=== PATIENT | male | born 1990 | race Caucasian/White ===

== ENCOUNTER 2019-03-12 07:18 | Inpatient (IN) | payer MEDICAID ==
[~2019-03-12] VITALS: Ht 167.6 cm; Wt 47.2 kg
[2019-03-12 08:09] LABS: BASOPHILS % (AUTO) 0.4 % (0-1); EOSINOPHILS % (AUTO) 0.1 % (0-6); HEMATOCRIT 48.7 % (42.0-52.0); LYMPHOCYTES # (AUTO) 0.8 X10'3 (1.1-4.8); LYMPHOCYTES % (AUTO) 6.9 % (21-51); MEAN CORPUSCULAR HEMOGLOBIN 27.1 PG (27.0-31.0); MEAN CORPUSCULAR HGB CONC 32.9 g/dL (33.0-36.5); MEAN CORPUSCULAR VOLUME 82.3 FL (78-98); MEAN PLATELET VOLUME 8.4 FL (7.4-10.4); MONOCYTES # (AUTO) 1.3 X10'3 (0-0.9); MONOCYTES % (AUTO) 11.6 % (2-12); PLATELET COUNT 326 X10'3 (140-440); RED BLOOD COUNT 5.91 X10'6 (4.70-6.10); RED CELL DISTRIBUTION WIDTH 15.3 % (11.5-14.5); WHITE BLOOD COUNT 11.1 X10'3 (4.5-11.0)
[2019-03-12 08:20] LABS: PARTIAL THROMBOPLASTIN TIME 33 SECONDS (22-32)
[2019-03-12 08:31] LABS: ABG BASE EXCESS 4.3 mmol/L (-2.0-3.0); ABG HCO3 32.1 mmol/L (22.0-26.0); ABG OXYGEN SATURATION 93.5 % (95-98); ABG PCO2 (T) 61.2 mmHg (35.0-45.0); ABG PH (T) 7.337 (7.350-7.450); ABG PO2 (T) 64.1 mmHg (83-108); ALLEN'S TEST Positive; FCOHb 1.2 % (0.5-1.5); FMetHb 0.2 % (0.3-1.12); FO2Hb 92.2 % (94-100); TOTAL HEMOGLOBIN 15.1 G/dl (14.0-17.9)
[2019-03-12 08:35] LABS: ALANINE AMINOTRANSFERASE 36 U/L (12-78); ALBUMIN 3.9 G/DL (3.4-5.0); ALBUMIN/GLOBULIN RATIO 0.9 (1.1-1.5); ALKALINE PHOSPHATASE 72 IU/L (46-116); ANION GAP 7 (8-16); ASPARTATE AMINO TRANSFERASE 45 U/L (10-37); BILIRUBIN,TOTAL 0.5 MG/DL (0.1-1.0); BLOOD UREA NITROGEN 13 MG/DL (7-18); BUN/CREATININE RATIO 28.9 (5.4-32.0); CALCIUM 9.7 MG/DL (8.5-10.1); CHLORIDE 100 MMOL/L (99-107); CREATININE 0.45 MG/DL (0.60-1.10); GLUCOSE 150 MG/DL (70-104); SODIUM 139 MMOL/L (135-145); TOTAL CARBON DIOXIDE 31.9 MMOL/L (24-32); TOTAL PROTEIN 8.3 G/DL (6.4-8.2); eGFR > 90 ML/MIN
[2019-03-12 08:39] LABS: POTASSIUM 2.8 MMOL/L (3.5-5.1)
[2019-03-12] MEDS ORDERED: potassium 10mEq/100ml NS w/LIDOcaine (10mg/bag) IV ONE (08:40)
[2019-03-12] MEDS ORDERED: potassium Cl 20 mEq SR tablet PO ONE (08:40)
[2019-03-12] MEDS ORDERED: iohexol 350MG/ML 100ml bottle IV ONE (08:45)
[2019-03-12] MEDS ORDERED: potassium CL 10mEq/100ml bag 100 ML IV ONE (08:50)
[2019-03-12 09:56] LABS: CLARITY,URINE CLOUDY (Clear); COLOR,URINE YELLOW (Yellow); GLUCOSE, URINE NEGATIVE (Neg); KETONES,URINE 15 mg/dl (Neg); LEUKOCYTE ESTERASE ,URINE NEGATIVE (Neg); NITRITES, URINE NEGATIVE (Neg); OCCULT BLOOD,URINE MODERATE (Neg); PH,URINE 6.5 (4.8-8.0); PROTEIN,URINE 30 mg/dl (Neg); UROBILINOGEN,URINE 0.2 E.U/dL (0.2-1.0)
[2019-03-12 10:12] LABS: UA COLLECTION TYPE URINAL
[2019-03-12 10:15] LABS: RBC,URINE 0-2 /HPF (0-2); WBC,URINE 0-4 /HPF (0-4)
[2019-03-12 10:16] LABS: AMMONIUM BIURATE CRYSTALS 3+ /HPF (NEGATIVE); BACTERIA,URINE FEW /HPF (Neg); HYALINE CASTS 0-3 /LPF (NEGATIVE); SQUAMOUS EPITHELIAL CELL,UR NONE SEEN /LPF (FEW)
[2019-03-12 10:17] LABS: MUCUS STRANDS FEW /LPF (Neg)
[2019-03-12] MEDS ORDERED: aspirin 325mg tablet PO ONE (10:25)
[2019-03-12] MEDS ORDERED: normal saline 1000ML IV soln IVB ONE (10:25)
[2019-03-12] MEDS ORDERED: ipratropium/albuterol 3ml nebule NEB ONE (10:40)
[2019-03-12 10:49] LABS: URINE AMPHETAMINE SCREEN NEGATIVE (Neg); URINE BARBITUATE SCREEN NEGATIVE (Neg); URINE BENZODIAZEPINES SCREEN NEGATIVE (Neg); URINE CANNABINOID SCREEN NEGATIVE (Neg); URINE COCAINE SCREEN NEGATIVE (Neg); URINE METHADONE SCREEN NEGATIVE (Neg); URINE OPIATE SCREEN NEGATIVE (Neg); URINE PHENCYCLIDINE SCREEN NEGATIVE (Neg)
[2019-03-12] MEDS ORDERED: normal saline 1000ml 1,000 ML IV SCH (11:21)
[2019-03-12] MEDS ORDERED: potassium Cl 20 mEq SR tablet PO PRN ×2 (11:25)
[2019-03-12] MEDS ORDERED: acetaminophen 325mg tablet PO PRN ×2 (11:25)
[2019-03-12] MEDS ORDERED: morphine 2 MG/ML inj. syringe IV PRN (11:25)
[2019-03-12] MEDS ORDERED: ondansetron/PF 4mg/2ml inj IV PRN (11:25)
[2019-03-12] MEDS ORDERED: HYDROcodone/acetaminophen 5mg/325mg tablet PO PRN (11:25)
[2019-03-12] MEDS ORDERED: magnesium 4gm in 100ml NS 100 ML IV PRN (11:25)
[2019-03-12] MEDS ORDERED: magnesium Cl slow-release 64mg tablet PO PRN (11:25)
[2019-03-12] MEDS ORDERED: magnesium 2GM in 50ml NS 50 ML IV PRN (11:25)
[2019-03-12] MEDS ORDERED: potassium CL 10mEq/100ml bag 100 ML IV PRN ×2 (11:25)
[2019-03-12] MEDS ORDERED: CefTRIAXone 2gm/D5W 50ml 50 ML IV SCH (11:36)
--- NOTE | 2019-03-12 12:00 | NUR ---
Patient in room PCU 3009. I have received report from JAIMIE Sol and had the opportunity to ask questions and assume patient care.
[2019-03-12 13:13] LABS: POTASSIUM 3.2 MMOL/L (3.5-5.1)
[2019-03-12 13:30] VITALS: BP 137/95
[2019-03-12] MEDS: levalbuterol 0.63mg/3ml nebule IH SCH ×3 (14:51→20:01)
[2019-03-12 15:00] VITALS: BP 131/87
--- NOTE | 2019-03-12 18:40 | NUR ---
Patient in room PCU 3009. I have received report from JAIMIE Peck and had the opportunity to ask questions and assume patient care.
--- NOTE | 2019-03-12 18:45 | NUR ---
Problems reprioritized. Patient report given, questions answered & plan of care reviewed with JAIMIE Kauffman.
[2019-03-12 19:00] VITALS: BP 144/101
[2019-03-12] MEDS: docusate sod 100mg capsule PO SCH (20:00)
[2019-03-12] MEDS: heparin, porcine 5000 units/ml vial SQ SCH (20:23)
--- NOTE | 2019-03-12 22:01 | NUR ---
PAGER ID: [phone] MESSAGE: [phone] pt Javan ARNOLD pt has been sinus tachy in the 130s. - Dlay 2604.
--- NOTE | 2019-03-12 22:09 | NUR ---
PAGER ID: [phone] MESSAGE: [phone] pt Javan ARNOLD pt has been sinus tachy in the 130s. - Daly 2602.
[2019-03-12 23:00] VITALS: BP 155/108
--- NOTE | 2019-03-12 23:23 | NUR ---
PAGER ID: [phone] MESSAGE: [phone] pt Javan c/o inability to move in enough air. Current O2 sat 97% on 2L, BP elevated to 156/118 manual, and sinus tach in the 140s now. Please advise - Daly [phone]
[2019-03-12] MEDS ORDERED: furosemide 40mg/4ml inj IV ONE (23:25)
--- NOTE | 2019-03-12 23:28 | NUR ---
Page to Respiratory: [phone] pt Javan c/o difficulty breathing, currently 97% on 2L but saying he feels like he isn't moving enough air in and is requesting RT. Thank you - Daly
[2019-03-13] VITALS (14 sets, daily range): BP systolic 109–160; BP diastolic 78–111
--- NOTE | 2019-03-13 00:21 | NUR ---
PAGER ID: [phone] MESSAGE: [phone] pt Javan repeatedly c/o difficulty breathing, Lasix given, fluids DCd, Morphine given, IS used, sats high 90s, still tachy in 130s, no obvious swelling. pt and father requesting MD to come see him if you are available. - Daly Schulte Addendum: 03/13/19 at 0103 by Daly Stallworth RN Per MD, continue to monitor including BP current of 147/100. One time Ativan PO ordered.
[2019-03-13] MEDS ORDERED: LORazepam 0.5 MG tablet PO STA (00:59)
[2019-03-13] MEDS: levalbuterol 0.63mg/3ml nebule IH SCH ×4 (02:12→20:10)
[2019-03-13 05:56] LABS: BASOPHILS % (AUTO) 0.2 % (0-1); EOSINOPHILS % (AUTO) 0 % (0-6); HEMATOCRIT 45.7 % (42.0-52.0); HEMOGLOBIN 14.8 g/dl (14.0-17.9); LYMPHOCYTES # (AUTO) 0.2 X10'3 (1.1-4.8); LYMPHOCYTES % (AUTO) 1.1 % (21-51); MEAN CORPUSCULAR HEMOGLOBIN 27.1 PG (27.0-31.0); MEAN CORPUSCULAR HGB CONC 32.4 g/dL (33.0-36.5); MEAN CORPUSCULAR VOLUME 83.6 FL (78-98); MEAN PLATELET VOLUME 9.1 FL (7.4-10.4); MONOCYTES # (AUTO) 1.2 X10'3 (0-0.9); MONOCYTES % (AUTO) 5.5 % (2-12); NEUTROPHILS # (AUTO) 20.6 X10'3 (1.8-7.7); NEUTROPHILS % (AUTO) 93.2 % (42-75); PLATELET COUNT 417 X10'3 (140-440); RED BLOOD COUNT 5.47 X10'6 (4.70-6.10); RED CELL DISTRIBUTION WIDTH 15.1 % (11.5-14.5); WHITE BLOOD COUNT 22.1 X10'3 (4.5-11.0)
--- NOTE | 2019-03-13 06:22 | NUR ---
Problems reprioritized. Patient report given, questions answered & plan of care reviewed with Gayle.
--- NOTE | 2019-03-13 06:23 | NUR ---
Patient in room PCU 3009. I have received report from Daly ETIENNE and had the opportunity to ask questions and assume patient care.
[2019-03-13 06:24] LABS: ALBUMIN 3.8 G/DL (3.4-5.0); ANION GAP 6 (8-16); BLOOD UREA NITROGEN 7 MG/DL (7-18); CALCIUM 9.2 MG/DL (8.5-10.1); CHLORIDE 99 MMOL/L (99-107); CREATININE 0.28 MG/DL (0.60-1.10); GLUCOSE 209 MG/DL (70-104); MAGNESIUM 1.8 MG/DL (1.5-2.4); POTASSIUM 3.3 MMOL/L (3.5-5.1); SODIUM 142 MMOL/L (135-145); TOTAL CARBON DIOXIDE 36.6 MMOL/L (24-32); eGFR > 90 ML/MIN
[2019-03-13 07:30] LABS: TOTAL CELLS COUNTED 100
[2019-03-13 07:31] LABS: ANISOCYTOSIS FEW; PLATELET ESTIMATE NORMAL
[2019-03-13] MEDS ORDERED: K and/or MAG REPLACEMENT MC SCH (08:00)
[2019-03-13] MEDS: docusate sod 100mg capsule PO SCH (08:00)
[2019-03-13] MEDS: heparin, porcine 5000 units/ml vial SQ SCH ×2 (08:45→21:03)
[2019-03-13 09:36] LABS: ABG BASE EXCESS 8.7 mmol/L (-2.0-3.0); ABG HCO3 42.8 mmol/L (22.0-26.0); ABG OXYGEN SATURATION 99.1 % (95-98); ABG PCO2 (T) 122.5 mmHg (35.0-45.0); ABG PH (T) 7.161 (7.350-7.450); ABG PO2 (T) 180.7 mmHg (83-108); ALLEN'S TEST Positive; FCOHb 0.3 % (0.5-1.5); FMetHb 0.6 % (0.3-1.12); FO2Hb 98.2 % (94-100)
--- NOTE | 2019-03-13 09:40 | NUR ---
Page sent to Dr. Carranza: PAGER ID: [phone] MESSAGE: [phone] Javan: Critical ABG pH 7.61, pCO2 122.2. Thanks, Gayle [id number]
--- NOTE | 2019-03-13 10:44 | NUR ---
Page sent to Dr. Carranza PAGER ID: [phone] MESSAGE: [phone] Raudel Edouard: Wondering if you've spoken to [facility] doctor? Thanks, Gayle [phone] received call from Dr. Carranza, she said she spoke to Patrick personally, she will be up to evaluate patient.
[2019-03-13] MEDS: vancomycin/NS 1 GM ADD-VANTAGE 250 ML IV SCH (11:02)
[2019-03-13] MEDS ORDERED: Potassium Cl inj 40 MEQ in normal saline 500ml IV soln 500 ML IV SCH (12:00)
[2019-03-13] MEDS ORDERED: Potassium Cl inj 40 MEQ in normal saline 500ml IV soln 500 ML IV ONE (12:00)
[2019-03-13] MEDS ORDERED: naloxone 0.4 mg/ml inj IV ONE (12:25)
[2019-03-13] MEDS ORDERED: normal saline 1000ml 1,000 ML IV ONE ×2 (12:25→15:10)
[2019-03-13] MEDS ORDERED: flumazenil 0.1 mg/ml inj. IV ONE (12:25)
[2019-03-13] MEDS ORDERED: pantoprazole 40 MG vial IV SCH (12:55)
[2019-03-13] MEDS ORDERED: magnesium 4gm in 100ml NS 100 ML IV PRN (12:55)
[2019-03-13] MEDS ORDERED: potassium CL 10mEq/100ml bag 100 ML IV PRN ×2 (12:55)
[2019-03-13] MEDS ORDERED: magnesium 2GM in 50ml NS 50 ML IV PRN (12:55)
[2019-03-13] MEDS: K, MAG and/or Phos replacement - Verify level? MC SCH (12:55)
--- NOTE | 2019-03-13 13:15 | NUR ---
Report given to Zuhair ETIENNE in ICU. Awaiting RT to accompany patient with Bipap for transfer
[2019-03-13 13:21] LABS: ABG BASE EXCESS 8.2 mmol/L (-2.0-3.0); ABG HCO3 36.5 mmol/L (22.0-26.0); ABG OXYGEN SATURATION 98.7 % (95-98); ABG PCO2 (T) 67.1 mmHg (35.0-45.0); ABG PH (T) 7.353 (7.350-7.450); ABG PO2 (T) 119.4 mmHg (83-108); ALLEN'S TEST Positive; FCOHb 0.5 % (0.5-1.5); FMetHb 0.5 % (0.3-1.12); FO2Hb 97.7 % (94-100); MINUTE VOLUME 7 L/min; RESPIRATORY RATE 18 b/min; RESPIRATORY RATE (OBSERVED) 22 b/min; TIDAL VOLUME 345 mL; TOTAL HEMOGLOBIN 14.5 G/dl (14.0-17.9)
--- NOTE | 2019-03-13 13:35 | NUR ---
Patient transferred to ICU, all belongings sent with patient.
--- NOTE | 2019-03-13 14:26 | NUR ---
Izaiah trigger: Izaiah 12; skin intact and no edema present. Pt hx muscular dystrophy and transferred to ICU for increased SOB. May need intubation per MD note and on aspiration precautions currently NPO. Will monitor for nutrition support needs if necessary; current wt pt stated no scaled wt yet this admit. Will need NUTRITION REPRESENTATIVE BSS prior to PO diet advancement given potential for aspiration. Addendum: 03/13/19 at [address] Amended: Links added.
[2019-03-13] MEDS ORDERED: Potassium Cl inj 40 MEQ in normal saline 1000ml 980 ML IV ONE (15:45)
[2019-03-13] MEDS: piperacillin/tazo 3.375gm/50ml 50 ML IV SCH ×2 (16:00→16:10)
[2019-03-13 17:01] LABS: ABG BASE EXCESS 6.5 mmol/L (-2.0-3.0); ABG HCO3 33.7 mmol/L (22.0-26.0); ABG OXYGEN SATURATION 96.9 % (95-98); ABG PCO2 (T) 59.4 mmHg (35.0-45.0); ABG PH (T) 7.372 (7.350-7.450); ABG PO2 (T) 80.2 mmHg (83-108); ALLEN'S TEST Positive; FCOHb 0.3 % (0.5-1.5); FMetHb 0.4 % (0.3-1.12); FO2Hb 96.2 % (94-100); MINUTE VOLUME 7 L/min; RESPIRATORY RATE 18 b/min; TIDAL VOLUME 352 mL
[2019-03-13] MEDS: ESOMEPRAZOLE 40 MG VIAL IV SCH (17:57)
--- NOTE | 2019-03-13 18:00 | NUR ---
Patient in room ICU 2045. I have received report from Oc ETIENNE and had the opportunity to ask questions and assume patient care.
--- NOTE | 2019-03-13 18:15 | NUR ---
Patient in room ICU 2045. I have received report from JAIMIE Moffett and had the opportunity to ask questions and assume patient care. Patient is awake and alert watching TV at time of report. Patient denies complaints of shortness of breath or discomfort. Patient heart rate in the 120's -130's sinus tachycardia on the monitor. Lung sounds are clear and diminished. Patient with nasal cannula at 2 lpm. Oxygen saturation 98%. Will continue to monitor.
[2019-03-13] MEDS: lactobacillus rhamnosus 10,000 MMU CELLS/CAPSULE PO SCH (21:02)
--- NOTE | 2019-03-13 23:00 | NUR ---
Asked patient if he needs to void. Patient states that he does not. Patient denies any discomfort at this time. Will continue to monitor.
[2019-03-14] VITALS (24 sets, daily range): BP systolic 110–130; BP diastolic 70–88
[2019-03-14] MEDS: levalbuterol 0.63mg/3ml nebule IH SCH ×2 (02:16→09:09)
[2019-03-14 05:18] LABS: BASOPHILS % (AUTO) 0.1 % (0-1); EOSINOPHILS % (AUTO) 0 % (0-6); HEMATOCRIT 39.9 % (42.0-52.0); HEMOGLOBIN 12.9 g/dl (14.0-17.9); LYMPHOCYTES % (AUTO) 10.1 % (21-51); MEAN CORPUSCULAR HEMOGLOBIN 27.3 PG (27.0-31.0); MEAN CORPUSCULAR HGB CONC 32.2 g/dL (33.0-36.5); MEAN CORPUSCULAR VOLUME 84.7 FL (78-98); MEAN PLATELET VOLUME 8.9 FL (7.4-10.4); MONOCYTES # (AUTO) 1.2 X10'3 (0-0.9); MONOCYTES % (AUTO) 11.7 % (2-12); NEUTROPHILS % (AUTO) 78.1 % (42-75); PLATELET COUNT 252 X10'3 (140-440); RED BLOOD COUNT 4.72 X10'6 (4.70-6.10); RED CELL DISTRIBUTION WIDTH 14.9 % (11.5-14.5); WHITE BLOOD COUNT 10.3 X10'3 (4.5-11.0)
[2019-03-14 05:33] LABS: ALANINE AMINOTRANSFERASE 32 U/L (12-78); ALBUMIN 2.8 G/DL (3.4-5.0); ALBUMIN/GLOBULIN RATIO 0.8 (1.1-1.5); ALKALINE PHOSPHATASE 51 IU/L (46-116); ANION GAP 1 (8-16); ASPARTATE AMINO TRANSFERASE 24 U/L (10-37); BILIRUBIN,TOTAL 0.3 MG/DL (0.1-1.0); BLOOD UREA NITROGEN 6 MG/DL (7-18); CALCIUM 8.6 MG/DL (8.5-10.1); CHLORIDE 105 MMOL/L (99-107); GLUCOSE 121 MG/DL (70-104); MAGNESIUM 1.7 MG/DL (1.5-2.4); POTASSIUM 4.3 MMOL/L (3.5-5.1); SODIUM 143 MMOL/L (135-145); TOTAL PROTEIN 6.5 G/DL (6.4-8.2); TROPONIN I 0.35 NG/ML (0.0-0.05)
[2019-03-14 05:48] LABS: CREATININE 0.15 MG/DL (0.60-1.10); eGFR > 90 ML/MIN
--- NOTE | 2019-03-14 06:09 | NUR ---
Orientee documentation: I have reviewed and agree with all interventions, assessments performed and documented by JAIMIE Astorga.
--- NOTE | 2019-03-14 06:13 | NUR ---
Orientee Medication Administration: For this medication-pass time frame, all medication were reviewed, dispensed, administered and documented per hospital policy by JAIMIE Astorga.
--- NOTE | 2019-03-14 06:38 | NUR ---
Problems reprioritized. Patient report given, questions answered & plan of care reviewed with JAIMIE Bautista.
--- NOTE | 2019-03-14 07:39 | NUR ---
post residual void 35ml per bladder scanner
[2019-03-14] MEDS: K, MAG and/or Phos replacement - Verify level? MC SCH (08:50)
[2019-03-14] MEDS: lactobacillus rhamnosus 10,000 MMU CELLS/CAPSULE PO SCH ×2 (08:50→21:02)
[2019-03-14] MEDS: docusate sodium 100mg/10ml UD cup PO SCH ×2 (08:50→21:02)
[2019-03-14] MEDS: heparin, porcine 5000 units/ml vial SQ SCH ×2 (08:51→21:03)
[2019-03-14] MEDS: piperacillin/tazo 3.375gm/50ml 50 ML IV SCH ×3 (08:55→15:50)
[2019-03-14] MEDS: vancomycin/NS 1 GM ADD-VANTAGE 250 ML IV SCH (08:56)
[2019-03-14] MEDS: ESOMEPRAZOLE 40 MG VIAL IV SCH (09:00)
[2019-03-14] MEDS ORDERED: levalbuterol 0.63mg/3ml nebule IH PRN (11:25)
[2019-03-14] MEDS: potassium cl 20mEq in 1/2 NS 1,000 ML IV SCH ×3 (12:11→21:05)
--- NOTE | 2019-03-14 18:00 | NUR ---
Patient in room ICU 2045. I have received report from Lily ETIENNE and had the opportunity to ask questions and assume patient care. Patient awake, alert, and has family visitors at bedside.
--- NOTE | 2019-03-14 18:00 | NUR ---
Problems reprioritized. Patient report given, questions answered & plan of care reviewed with Machelle ETIENNE.
--- NOTE | 2019-03-14 18:10 | NUR ---
Patient in room ICU 2045. I have received report from JAIMIE Bautista and had the opportunity to ask questions and assume patient care. Patient is awake and alert at time of report. Dinner tray delivered and patient fed dinner, patient seated up at 90 degree angle finished dinner without incident. Patient with PIV x2 to left arm with NS with 20 mEq K infusing at a rate of 60 ml/hr secondary to patient c/o IV fluids burning per Lily ETIENNE. With the decreased rate patient without compliant. will continue to monitor.
[2019-03-14] MEDS ORDERED: VANCOMYCIN LEVEL IV ONE (20:30)
--- NOTE | 2019-03-14 23:00 | NUR ---
Patient placed on BiPAP at 2300. FiO2 25%. Patient under 1:1 RN supervision.
--- NOTE | 2019-03-14 23:00 | NUR ---
Post residual void scan of 153 ml after voiding. Patient is not in any discomfort and declined needing to void.
[2019-03-15] VITALS (25 sets, daily range): BP systolic 119–140; BP diastolic 65–99
[2019-03-15] MEDS: piperacillin/tazo 3.375gm/50ml 50 ML IV SCH ×4 (00:13→23:13)
--- NOTE | 2019-03-15 02:44 | NUR ---
Bladder scan post void. 78 ml total.
--- NOTE | 2019-03-15 03:18 | NUR ---
Phone call to Toni Hollis NP re: rate change of 1/2 NS with 20 K. from 100 ml/hr to 60ml/hr. Patient c/o burning at IV site, pain went away with decreased rate. Patient is voiding well, eating and drinking. Per Andrews Hollis NP okay to change rate to 60ml/hr.
--- NOTE | 2019-03-15 04:00 | NUR ---
Patient requested a break from the BiPap mask. Break from 0330 - 0400 given. Patient drank water and was repositioned during this time.
[2019-03-15 04:50] LABS: BASOPHILS % (AUTO) 0.4 % (0-1); EOSINOPHILS % (AUTO) 0.5 % (0-6); HEMATOCRIT 36.1 % (42.0-52.0); HEMOGLOBIN 11.8 g/dl (14.0-17.9); LYMPHOCYTES # (AUTO) 1.5 X10'3 (1.1-4.8); LYMPHOCYTES % (AUTO) 18.9 % (21-51); MEAN CORPUSCULAR HEMOGLOBIN 27.1 PG (27.0-31.0); MEAN CORPUSCULAR HGB CONC 32.8 g/dL (33.0-36.5); MEAN CORPUSCULAR VOLUME 82.8 FL (78-98); MONOCYTES # (AUTO) 0.9 X10'3 (0-0.9); MONOCYTES % (AUTO) 10.8 % (2-12); NEUTROPHILS # (AUTO) 5.6 X10'3 (1.8-7.7); NEUTROPHILS % (AUTO) 69.4 % (42-75); PLATELET COUNT 240 X10'3 (140-440); RED BLOOD COUNT 4.36 X10'6 (4.70-6.10); RED CELL DISTRIBUTION WIDTH 14.8 % (11.5-14.5); WHITE BLOOD COUNT 8.1 X10'3 (4.5-11.0)
[2019-03-15 05:08] LABS: ALANINE AMINOTRANSFERASE 26 U/L (12-78); ALBUMIN 2.6 G/DL (3.4-5.0); ALBUMIN/GLOBULIN RATIO 0.8 (1.1-1.5); ALKALINE PHOSPHATASE 48 IU/L (46-116); ANION GAP 5 (8-16); ASPARTATE AMINO TRANSFERASE 19 U/L (10-37); BILIRUBIN,TOTAL 0.7 MG/DL (0.1-1.0); BLOOD UREA NITROGEN 6 MG/DL (7-18); BUN/CREATININE RATIO 35.3 (5.4-32.0); CALCIUM 8.9 MG/DL (8.5-10.1); CHLORIDE 101 MMOL/L (99-107); CREATININE 0.17 MG/DL (0.60-1.10); GLUCOSE 86 MG/DL (70-104); MAGNESIUM 1.6 MG/DL (1.5-2.4); POTASSIUM 4.3 MMOL/L (3.5-5.1); SODIUM 140 MMOL/L (135-145); TOTAL CARBON DIOXIDE 33.8 MMOL/L (24-32); TOTAL PROTEIN 5.9 G/DL (6.4-8.2); eGFR > 90 ML/MIN
[2019-03-15] MEDS: potassium cl 20mEq in 1/2 NS 1,000 ML IV SCH (05:55)
--- NOTE | 2019-03-15 06:00 | NUR ---
BiPAP off patient.
--- NOTE | 2019-03-15 06:39 | NUR ---
Problems reprioritized. Patient report given, questions answered & plan of care reviewed with JAIMIE Moffett.
--- NOTE | 2019-03-15 06:42 | NUR ---
Orientee documentation: I have reviewed and agree with all interventions, assessments performed and documented by JAIMIE Astorga .
--- NOTE | 2019-03-15 06:42 | NUR ---
Orientee Medication Administration: For this medication-pass time frame, all medication were reviewed, dispensed, administered and documented per hospital policy by JAIMIE Astorga.
[2019-03-15] MEDS: ESOMEPRAZOLE 40 MG VIAL IV SCH (07:51)
[2019-03-15] MEDS: lactobacillus rhamnosus 10,000 MMU CELLS/CAPSULE PO SCH ×2 (07:52→19:32)
[2019-03-15] MEDS: docusate sodium 100mg/10ml UD cup PO SCH ×2 (07:52→19:31)
[2019-03-15] MEDS: K, MAG and/or Phos replacement - Verify level? MC SCH (07:53)
[2019-03-15] MEDS: vancomycin/NS 1 GM ADD-VANTAGE 250 ML IV SCH (08:20)
--- NOTE | 2019-03-15 12:05 | NUR ---
Malnutrition consult: Pt s/p rapid response r/t respiratory failure. Advanced to pureed/thin liquids per GOLDBEATER PO 50% breakfast today per RN meeting needs given wt. Pt is mostly covered but clavicles visibly prominent showing low muscle/fat mass. No edema, good PO so far first meals s/p rapid response. Rigid strength is related to hx muscular dystrophy; requires feeder given hx unable to feed self. LBM 8/5. Pt seen by RD and reports wt loss over past 3 months r/t decreased PO likely from increased respiratory issues. Pt is unsure of prior wt but given above criteria does qualify for severe malnutrition at this time; notified. RD provided written malnutrition ed w/ RD contact information and pt was agreeable to chocolate ensure pudding BIDLD. Will continue to monitor. Rec: 1. continue pureed/thin liquids per GOLDBEATER 2. chocolate ensure pudding BIDLD 3. weekly wts Addendum: 03/15/19 at [address] Amended: Links added.
[2019-03-15] MEDS: methylPREDNISolone sod succ 125mg/2ml vial IV SCH ×2 (12:06→19:31)
--- NOTE | 2019-03-15 18:00 | NUR ---
Patient in room ICU 2045. I have received report from Zuhair ETIENNE and had the opportunity to ask questions and assume patient care. Patient is alert, family at bedside, will continue to monitor.
[2019-03-15] MEDS: VANCOMYCIN 750MG IV in NS 250 ML IV SCH (20:15)
--- NOTE | 2019-03-15 21:10 | NUR ---
Upper Left arm PIV infiltrated, red, swolle, applied warm compress, and removed. Andrews Hollis notified that the patient is sensitive to Potassium IV. Received orders to continue on oral potassium replacements per protocol and for normal saline at 60 ml/hr.
--- NOTE | 2019-03-15 23:00 | NUR ---
BiPAP on at 2300, FiO2 25%, patient is comfortable and ready to go to sleep.
[2019-03-15] MEDS: normal saline 1000ml 1,000 ML IV SCH (23:13)
[2019-03-16] VITALS (19 sets, daily range): BP systolic 120–159; BP diastolic 83–107
[2019-03-16] MEDS ORDERED: potassium Cl 20 mEq SR tablet PO PRN (01:40)
[2019-03-16] MEDS: methylPREDNISolone sod succ 125mg/2ml vial IV SCH ×4 (02:01→19:52)
[2019-03-16 05:18] LABS: ALANINE AMINOTRANSFERASE 26 U/L (12-78); ALBUMIN 2.8 G/DL (3.4-5.0); ALBUMIN/GLOBULIN RATIO 0.8 (1.1-1.5); ALKALINE PHOSPHATASE 46 IU/L (46-116); ANION GAP 5 (8-16); ASPARTATE AMINO TRANSFERASE 19 U/L (10-37); BILIRUBIN,TOTAL 0.5 MG/DL (0.1-1.0); BLOOD UREA NITROGEN 6 MG/DL (7-18); CALCIUM 8.5 MG/DL (8.5-10.1); CHLORIDE 103 MMOL/L (99-107); CREATININE 0.25 MG/DL (0.60-1.10); GLUCOSE 136 MG/DL (70-104); MAGNESIUM 1.5 MG/DL (1.5-2.4); POTASSIUM 3.8 MMOL/L (3.5-5.1); SODIUM 142 MMOL/L (135-145); TOTAL CARBON DIOXIDE 34.5 MMOL/L (24-32); TOTAL PROTEIN 6.3 G/DL (6.4-8.2); eGFR > 90 ML/MIN
--- NOTE | 2019-03-16 06:23 | NUR ---
Problems reprioritized. Patient report given, questions answered & plan of care reviewed with Liyl ETIENNE.
[2019-03-16 06:52] LABS: BASOPHILS % (AUTO) 0.1 % (0-1); EOSINOPHILS % (AUTO) 0 % (0-6); HEMATOCRIT 37.5 % (42.0-52.0); HEMOGLOBIN 12.5 g/dl (14.0-17.9); LYMPHOCYTES # (AUTO) 0.4 X10'3 (1.1-4.8); LYMPHOCYTES % (AUTO) 12.2 % (21-51); MEAN CORPUSCULAR HEMOGLOBIN 27.5 PG (27.0-31.0); MEAN CORPUSCULAR HGB CONC 33.4 g/dL (33.0-36.5); MEAN CORPUSCULAR VOLUME 82.4 FL (78-98); MEAN PLATELET VOLUME 9.1 FL (7.4-10.4); MONOCYTES # (AUTO) 0.2 X10'3 (0-0.9); MONOCYTES % (AUTO) 4.3 % (2-12); NEUTROPHILS % (AUTO) 83.4 % (42-75); PLATELET COUNT 239 X10'3 (140-440); RED BLOOD COUNT 4.55 X10'6 (4.70-6.10); RED CELL DISTRIBUTION WIDTH 14.5 % (11.5-14.5); WHITE BLOOD COUNT 3.6 X10'3 (4.5-11.0)
[2019-03-16] MEDS: docusate sodium 100mg/10ml UD cup PO SCH ×2 (08:00→19:52)
[2019-03-16] MEDS: ESOMEPRAZOLE 40 MG VIAL IV SCH (08:10)
[2019-03-16] MEDS: lactobacillus rhamnosus 10,000 MMU CELLS/CAPSULE PO SCH ×2 (08:10→19:51)
[2019-03-16] MEDS: piperacillin/tazo 3.375gm/50ml 50 ML IV SCH ×2 (08:10→17:45)
[2019-03-16] MEDS: VANCOMYCIN 750MG IV in NS 250 ML IV SCH (08:10)
[2019-03-16] MEDS: K, MAG and/or Phos replacement - Verify level? MC SCH (08:19)
[2019-03-16] MEDS: normal saline 1000ml 1,000 ML IV SCH (13:06)
--- NOTE | 2019-03-16 15:30 | NUR ---
Received report from Anaid. Awaiting patient arrival to [id number].
--- NOTE | 2019-03-16 16:21 | NUR ---
Patient arrived to U 3014B and was trasnferred to hospital bed by 2 RN's. Patient oriented to room and to call light. Patient vital signs: Temp: 98.1, HR 113, O2: 96% on room air, BP 147/102, RR: 18. Pain 0/10. Patient has no complaints at this time. All immediate needs met. Will continue to monitor.
--- NOTE | 2019-03-16 19:05 | NUR ---
Problems reprioritized. Patient report given, questions answered & plan of care reviewed with Marian ETIENNE.
--- NOTE | 2019-03-16 19:09 | NUR ---
Problems reprioritized. Patient report given, questions answered & plan of care reviewed with Suzanna ETIENNE. Patient stable at transfer of care.
--- NOTE | 2019-03-16 21:38 | NUR ---
Patient in room PCU 3014. I have received report from Evelia ETIENNE and had the opportunity to ask questions and assume patient care.
[2019-03-17] MEDS: piperacillin/tazo 3.375gm/50ml 50 ML IV SCH ×3 (00:07→15:58)
[2019-03-17] MEDS: normal saline 1000ml 1,000 ML IV SCH (00:07)
--- NOTE | 2019-03-17 01:04 | NUR ---
discussed with RT Giovany about pt o2 sat, Dr. Telles order O2 sat 88-92%, with bipap on, bipap setting changed [id number]% to keep the O2 sat down but O2 is from 92-96%. RT Giovany said he can put in the Nasal Canula but Dr. Weston would not want pt on NS according from Evelia ETIENNE. RT Giovany said he nothing he cant change if the Fi02 is already 21%, and we still have to wait for the Trilogy to arrive
[2019-03-17] MEDS: methylPREDNISolone sod succ 125mg/2ml vial IV SCH ×4 (02:51→20:17)
[2019-03-17 03:00] VITALS: BP 118/75
[2019-03-17 05:25] LABS: BASOPHILS % (AUTO) 0.1 % (0-1); EOSINOPHILS % (AUTO) 0 % (0-6); HEMATOCRIT 34.9 % (42.0-52.0); HEMOGLOBIN 11.6 g/dl (14.0-17.9); LYMPHOCYTES # (AUTO) 0.6 X10'3 (1.1-4.8); MEAN CORPUSCULAR HEMOGLOBIN 27.4 PG (27.0-31.0); MEAN CORPUSCULAR HGB CONC 33.1 g/dL (33.0-36.5); MEAN CORPUSCULAR VOLUME 82.7 FL (78-98); MEAN PLATELET VOLUME 9.1 FL (7.4-10.4); MONOCYTES # (AUTO) 0.6 X10'3 (0-0.9); MONOCYTES % (AUTO) 13.1 % (2-12); NEUTROPHILS # (AUTO) 3.1 X10'3 (1.8-7.7); NEUTROPHILS % (AUTO) 73.8 % (42-75); PLATELET COUNT 272 X10'3 (140-440); RED BLOOD COUNT 4.22 X10'6 (4.70-6.10); RED CELL DISTRIBUTION WIDTH 14.4 % (11.5-14.5); WHITE BLOOD COUNT 4.3 X10'3 (4.5-11.0)
[2019-03-17 05:44] LABS: ALANINE AMINOTRANSFERASE 26 U/L (12-78); ALBUMIN 2.6 G/DL (3.4-5.0); ALBUMIN/GLOBULIN RATIO 0.8 (1.1-1.5); ALKALINE PHOSPHATASE 41 IU/L (46-116); ANION GAP 6 (8-16); ASPARTATE AMINO TRANSFERASE 31 U/L (10-37); BILIRUBIN,TOTAL 0.4 MG/DL (0.1-1.0); BLOOD UREA NITROGEN 14 MG/DL (7-18); BUN/CREATININE RATIO 48.3 (5.4-32.0); CALCIUM 8.3 MG/DL (8.5-10.1); CHLORIDE 105 MMOL/L (99-107); CREATININE 0.29 MG/DL (0.60-1.10); GLUCOSE 145 MG/DL (70-104); MAGNESIUM 1.5 MG/DL (1.5-2.4); POTASSIUM 3.1 MMOL/L (3.5-5.1); SODIUM 145 MMOL/L (135-145); TOTAL CARBON DIOXIDE 34.4 MMOL/L (24-32); TOTAL PROTEIN 5.9 G/DL (6.4-8.2); eGFR > 90 ML/MIN
[2019-03-17 06:00] VITALS: BP 129/92
--- NOTE | 2019-03-17 06:00 | NUR ---
Patient in room PCU 3014. I have received report from Suzanna ETIENNE and had the opportunity to ask questions and assume patient care.
--- NOTE | 2019-03-17 06:24 | NUR ---
Problems reprioritized. Patient report given, questions answered & plan of care reviewed with Salomon ETIENNE.
[2019-03-17] MEDS: K, MAG and/or Phos replacement - Verify level? MC SCH (08:00)
[2019-03-17] MEDS ORDERED: VANCOMYCIN LEVEL IV ONE (08:30)
[2019-03-17] MEDS: potassium Cl 20 mEq SR tablet PO PRN ×3 (09:01→17:51)
[2019-03-17] MEDS: lactobacillus rhamnosus 10,000 MMU CELLS/CAPSULE PO SCH ×2 (09:01→20:17)
[2019-03-17] MEDS: docusate sodium 100mg/10ml UD cup PO SCH ×2 (09:01→20:00)
[2019-03-17] MEDS: ESOMEPRAZOLE 40 MG VIAL IV SCH (09:01)
[2019-03-17 11:00] VITALS: BP 139/85
[2019-03-17 15:00] VITALS: BP 145/98
--- NOTE | 2019-03-17 18:00 | NUR ---
Problems reprioritized. Patient report given, questions answered & plan of care reviewed with Lisbeth ETIENNE.
--- NOTE | 2019-03-17 18:15 | NUR ---
Patient in room PCU 3014. I have received report from Sumi ETIENNE and had the opportunity to ask questions and assume patient care.
[2019-03-17 19:00] VITALS: BP 142/108
[2019-03-17 23:00] VITALS: BP 132/94
[2019-03-18] MEDS: piperacillin/tazo 3.375gm/50ml 50 ML IV SCH ×2 (00:19→07:49)
[2019-03-18] MEDS: methylPREDNISolone sod succ 125mg/2ml vial IV SCH ×2 (01:14→07:49)
[2019-03-18 03:00] VITALS: BP 118/85
[2019-03-18 06:00] VITALS: BP 130/91
--- NOTE | 2019-03-18 06:00 | NUR ---
Patient in room PCU 3014. I have received report from Lisbeth ETIENNE and had the opportunity to ask questions and assume patient care.
--- NOTE | 2019-03-18 06:23 | NUR ---
Problems reprioritized. Patient report given, questions answered & plan of care reviewed with Luana ETIENNE.
[2019-03-18 06:28] LABS: ALANINE AMINOTRANSFERASE 28 U/L (12-78); ALBUMIN 2.4 G/DL (3.4-5.0); ALBUMIN/GLOBULIN RATIO 0.8 (1.1-1.5); ALKALINE PHOSPHATASE 34 IU/L (46-116); ANION GAP 6 (8-16); ASPARTATE AMINO TRANSFERASE 22 U/L (10-37); BILIRUBIN,TOTAL 0.3 MG/DL (0.1-1.0); BLOOD UREA NITROGEN 21 MG/DL (7-18); BUN/CREATININE RATIO 95.5 (5.4-32.0); CALCIUM 8.3 MG/DL (8.5-10.1); CHLORIDE 108 MMOL/L (99-107); CREATININE 0.22 MG/DL (0.60-1.10); GLUCOSE 143 MG/DL (70-104); MAGNESIUM 1.4 MG/DL (1.5-2.4); POTASSIUM 4.1 MMOL/L (3.5-5.1); SODIUM 148 MMOL/L (135-145); TOTAL PROTEIN 5.5 G/DL (6.4-8.2); eGFR > 90 ML/MIN
[2019-03-18] MEDS: docusate sodium 100mg/10ml UD cup PO SCH (07:49)
[2019-03-18] MEDS: lactobacillus rhamnosus 10,000 MMU CELLS/CAPSULE PO SCH (07:49)
[2019-03-18] MEDS: ESOMEPRAZOLE 40 MG VIAL IV SCH (07:49)
[2019-03-18] MEDS: K, MAG and/or Phos replacement - Verify level? MC SCH (08:00)
[2019-03-18] MEDS: normal saline 1000ml 1,000 ML IV SCH (08:17)
[2019-03-18] MEDS ORDERED: magnesium Cl slow-release 64mg tablet PO PRN (09:40)
--- NOTE | 2019-03-18 10:01 | NUR ---
Reassessment: Pt improving and still with BiPAP per MD notes. Pt s/p BSS 03/[address] rec[address] pureed food with nectar thick liquids and needs a feeder. Documented PO intake continues to slowly improve documented with 75-100% two most recent meals, 25% improving to 50% prior to that. Wt overall stable since admit. LBM 03/17. Will continue to follow. Rec: 1. continue pureed/nectar thick liquids per [employer] MA[employer]GER 2. chocolate ensure pudding BIDLD 3. weekly wts Addendum: 03/18/19 at [address] Amended: Links added.
[2019-03-18 11:00] VITALS: BP 141/96
[2019-03-18] MEDS ORDERED: magnesium 4gm in 100ml NS 100 ML IV PRN (12:20)
--- NOTE | 2019-03-18 14:40 | NUR ---
Pt's family member requesting education on where to get pureed foods and nectar thick liquids for patient after discharge. storage center manager Alexus notified, per Alexus, she will research where to get these items and then let us know.
--- NOTE | 2019-03-18 14:44 | NUR ---
Arrived at bedside to provide nail care per consult request from primary nurse. Pt has no history of DM, PVD, or neuropathy. Trimmed toenails. Pt tolerated procedure well. Bed left in lowest position, call light and personal items within reach.
[2019-03-18 15:00] VITALS: BP 134/89
--- NOTE | 2019-03-18 16:00 | NUR ---
Patient discharged home stable. Discharge instructions given to patient and father verbally and written, both verbalized understanding. PIV x1 removed from Left Antecubital, canula intact. Tele box removed and returned to telephone sales agent room. No prescriptions to fill. Patient and father to meet [facility] at home for education on Trilogy machine. Patient wheeled out via his own motorized wheelchair to private vehicle accompanied by father.
== END 2019-03-18 16:00 | disposition home or self-care (01) | DRG 133 ==
LOC: ER 07:19 → PCU 3S 12:56 → ICU 2S 03-13 13:38 → PCU 3S 03-16 16:21 → UNDODISIN 03-18 12:24
PROVIDERS: ADMIT Internal Medicine; ATTEND Internal Medicine Critical Care Medicine
PROC: B32T1ZZ Computerized Tomography (CT Scan) of Left Pulmonary Artery using Low Osmolar Contrast (ICD-10-PCS; 2019-03-12)
PROC: B3201ZZ Computerized Tomography (CT Scan) of Thoracic Aorta using Low Osmolar Contrast (ICD-10-PCS; 2019-03-12)
PROC: B32S1ZZ Computerized Tomography (CT Scan) of Right Pulmonary Artery using Low Osmolar Contrast (ICD-10-PCS; 2019-03-12)
PROC: 5A09357 Assistance with Respiratory Ventilation, Less than 24 Consecutive Hours, Continuous Positive Airway Pressure (ICD-10-PCS; principal; 2019-03-13)
PROC: 5A09357 Assistance with Respiratory Ventilation, Less than 24 Consecutive Hours, Continuous Positive Airway Pressure (ICD-10-PCS; 2019-03-14)
PROC: 5A09357 Assistance with Respiratory Ventilation, Less than 24 Consecutive Hours, Continuous Positive Airway Pressure (ICD-10-PCS; 2019-03-16)
PROC: 5A09357 Assistance with Respiratory Ventilation, Less than 24 Consecutive Hours, Continuous Positive Airway Pressure (ICD-10-PCS; 2019-03-18)
DX: J96.22 Acute and chronic respiratory failure with hypercapnia (principal); G71.01 Duchenne or Becker muscular dystrophy; R64 Cachexia; E87.2 Acidosis; R13.10 Dysphagia, unspecified; E87.6 Hypokalemia; F12.90 Cannabis use, unspecified, uncomplicated; J44.9 Chronic obstructive pulmonary disease, unspecified; Z66 Do not resuscitate; R00.0 Tachycardia, unspecified; Z77.22 Contact with and (suspected) exposure to environmental tobacco smoke (acute) (chronic); Z74.01 Bed confinement status; Z68.1 Body mass index [BMI] 19.9 or less, adult
CPT/HCPCS: 36415; 36600; 71045; 71275; 80048; 80053; 80202; 80305; 81001; 82803; 83605; 83735; 83880; 84132; 84145; 84439; 84443; 84484; 85018; 85025; 85610; 85730; 87040; 92508; 92616; 93005; 93308; 94010; 94640; 94660; 94760; 96365; 96366; 96367; 97110; 97162; 97530; 97535; 99285; G0378; J0696; J1644; J1940; J2270; J2543; J2930; J3370; J3475; J3480; J7030; J7040; J7050; J7614; Q9967